=== PATIENT | female | born 1990 | race Caucasian/White ===

== ENCOUNTER → 2016-10-08 08:24 | Day surgery (SDC) | payer BC ==
[~2016-10-08 08:24] MED LIST: Buffered Lidocaine 1% SYR 3ML* 3 ML/SYR SYRINGE INTRADERM ONE; Dexamethasone IV* 4 MG/ML 1 ML (4 MG) ONE; DiMENhydriNATE IV* 50 MG/ML VIAL IV PUSH PRN; Gelatin ADSORBABLE (OPHTH)* OPHTH.FILM ONE; Gelfoam 12-7 ADSORBABL SPONGE* 1 EA SPONGE ONE; Ketorolac INJ* 30 MG/ML 1 ML VIAL IV PRN; Ketorolac INJ* 30 MG/ML 1 ML VIAL ONE; Lidocaine 2% EPI 1:200000 MPF* 20 ML VIAL ONE; Lidocaine 2% PF * 5 ML VIAL ONE; Ondansetron INJ* 2 MG/ML VIAL ONE; Oxymetazoline 0.05% NASAL SPR* 15 ML BTL ONE; Propofol* 10 MG/ML 20 ML BTL IV PUSH ONE; Scopolamine 1.5 mg* PATCH ONE; Scopolamine 1.5 mg* PATCH TRANSDERM SCH; Scopolamine PATCH Remove* 1 NOTE MISC PATCH OFF SCH; fentaNYL* 50 MCG/ML 2 ML VIAL (100 MCG VIAL) IV PRN; fentaNYL* 50 MCG/ML 2 ML VIAL (100 MCG VIAL) ONE; oxyCODONE/Acetamin 5/325 MG* TAB PO PRN
[2016-10-08 08:48] LABS: Manual Entry Verification HAN0055; UR Preg Internal Control QC Line Present
[2016-10-08 11:40] VITALS: BP 114/67
--- NOTE | 2016-10-09 02:58 | OP ---
DATE OF OPERATION: 10/08/16 - [facility] DATE OF : 89 SURGEON: Robert Ferrera M.D. ANESTHESIOLOGIST: Norberto Hurt MD ANESTHESIA: General PRE-OP DIAGNOSIS: Nasal polyp, left maxillary sinus antrochoanal polyp. POST-OP DIAGNOSIS: Nasal polyp, left maxillary sinus antrochoanal polyp. OPERATIVE PROCEDURE: Excision of left antrochoanal polyp and maxillectomy. BRIEF HISTORY: This 26-year-old female with previous endoscopic sinus surgery, noted progressive nasal dyspnea. On endoscopic examination in the office, she had adequate antrostomy on the right side without any polyposis and ethmoidectomy. Left side showed a large antrochoanal polyp obstructing the left antrum and originating from the left maxillary sinus. DESCRIPTION OF PROCEDURE: The patient was taken to the operating room. General anesthetic was given. The patient was intubated with LMA. Nose was decongested with Afrin-placed pledgets. 0-degree telescope, 30-degree telescope and microshaver were utilized. 2% lidocaine with epinephrine was infiltrated in the left nasal polyp into the nasal vestibule into the maxillary antrum. The microshaver was used to remove the nasal polyp and then the antrostomy area was cleaned with microshaver. Microshaver was then introduced into the maxillary antrum and then carefully the entire polyp, which was originating in the maxillary sinus was removed. The area was cleaned and irrigated several times. There was no evidence using a 30- degree scope to find anymore hyperplastic mucosa. Ethmoidal, nasal frontal area were completely clean. Small pieces of Gelfilm and Gelfoam were used as a spacer between the middle turbinate and lateral nasal wall. The patient was awakened, extubated, and sent to the recovery room in stable condition. Instrument and sponge count correct. Blood loss minimal. [id number]/[facility] #: [id number] MTDD
== END | disposition home or self-care (01) ==
LOC: OR 08:24
PROVIDERS: ATTEND Otolaryngology
DX: J33.8 Other polyp of sinus (principal)
CPT/HCPCS: 81025; 88305; A9270-GY; J1100; J1885; J2405; J2704; J3010